=== PATIENT | female | born 1980 | race Caucasian/White ===

== ENCOUNTER 2018-08-13 21:28 | Emergency (ER) | payer OTHER ==
[~2018-08-13] VITALS: Ht 170.1 cm; Wt 70.3 kg
[~2018-08-13 21:28] MED LIST: CIPRO250 MG PO; MACROBID100 M1 PO; NKHM; PEPCID20 MG PO; PYRIDIUM200 MG PO
== END 2018-08-13 23:48 | disposition home or self-care (01) ==
LOC: ED 21:28
DX: M77.8 Other enthesopathies, not elsewhere classified (principal); M79.675 Pain in left toe(s)